=== PATIENT | female | born 1960 | race Two or more races ===

== ENCOUNTER → 2024-09-28 | Outpatient (CLI) | payer MEDICAID, SELFPAY ==
--- NOTE | 2024-09-28 09:45 | XR_ITS ---
Examination: Screening digital mammography, bilateral Computer aided detection 3-D breast Tomosynthesis, bilateral Date and time of exam: September 28, 2024 0930 hours Compared to mammograms dating to November 27, 2020 Indication: Screening Technique: Nonmagnified MLO, CC views of the breasts to been obtained, reconstructed from 3-D Tomosynthesis images. R2 computer aided detection program utilized for evaluation of suspicious masses and/or abnormal calcifications. 3-D Tomosynthesis images obtained. Findings: Stable focal asymmetry central left breast CC view The breasts are heterogeneously dense which may obscure small masses The breast architecture is nodular although definite suspicious mass is not depicted Impression: BI-RADS category II: Benign Findings. Recommend 1 year follow-up mammogram. Given the heterogeneously dense nodular breast architecture, recommend baseline bilateral breast sonography follow-up
== END | disposition home or self-care (01) ==
LOC: CDIM 09:20
PROVIDERS: Referring Provider Nurse Practitioner Primary Care; Visit Provider Nurse Practitioner Primary Care
DX: Z12.31 Encounter for screening mammogram for malignant neoplasm of breast (principal); R92.323 Mammographic fibroglandular density, bilateral breasts; N63.20 Unspecified lump in the left breast, unspecified quadrant; N63.10 Unspecified lump in the right breast, unspecified quadrant
CPT/HCPCS: 77063; 77067

== ENCOUNTER 2025-04-30 09:50 | Emergency (ER) | payer MEDICAID, SELFPAY ==
[2025-04-30 10:24] VITALS: BP 129/75; PULSE 64; RESP 16; TEMP 36.7; O2SAT 97; BMI 33.6
--- NOTE | 2025-04-30 10:48 | EDNOTE_ITS ---
Upper Extremity Injury RME/HPI General Chief Complaint: Extremity Injury, Upper Stated Complaint: L) ARM PAIN RADIATING TO L) EAR, POOR HEARING X 3D Time Seen by Provider: 04/30/25 09:56 Arrival date/time: 04/30/25 09:50 This is a 65-year-old female that has multiple complaints. Patient states that she is having left ear fullness and ringing and states that she has not been able to hear really well in her left ear. Patient reports that she has been trying to clean her ear but it has not been working. Patient also complains of left lateral chest pain to posterior muscles and left shoulder pain. Pain is exacerbated with movement but also reports chest pain on left upper chest. Patient denies any shortness of breath. Patient has a history of high blood pressure, diabetes. Patient reports that she uses insulin. Related Data Home Medications ?Medication ?Instructions ?Recorded ?Confirmed benazepril 20 mg tablet (Lotensin) 20 mg PO QDAY #0 ta bs 02/13/14 metformin 1,000 mg tablet 1,000 mg PO QDAC #0 tabs 10/22 (Glucophage) Previous Rx's ?Medication ?Instructions ?Recorded cyclobenzaprine 5 mg tablet 5 mg PO HS PRN muscle spas m #10 04/30/25 tabs ibuprofen 800 mg tablet 800 mg PO Q6H PRN pain #10 t abs 04/30/25 Allergies Allergy/AdvReac Type Severity Reaction Status Date / Time No Known Allergies Allergy Verified 04/30/25 09:54 Review of Systems Review of Systems Systems Reviewed: All systems reviewed, normal except as documented Past Medical History Past Medical History Comments PMH COMMENT: See note ED Exam Narrative Physical exam: VITAL SIGNS: Reviewed. GENERAL APPEARANCE: Alert and interactive, follows commands, no acute distress HEAD AND FACE: Non-traumatic. ENT: PERRL, conjuctiva pink and clear, eyelid no trauma, Mucous membrane moist. NECK: Supple, nontender, no nuchal rigidity. CHEST: No tenderness, no crepitus, no paradoxical movement, no retractions. LUNGS: breathing even and unlabored HEART: Regular rate, cap refill less than 2 seconds ABDOMEN: Soft, nondistended, no guarding, nontender, no rebound, no masses, NEUROLOGICAL: Gross motor function intact sensory function intact, Appropriate for age. MUSCULOSKELETAL: low back nontender, full range of motion. no midline tenderness, no meningismus, no step offs EXTREMITIES: No redness no swelling no skin breakdown on bilateral foot and leg. Distal neurovascular status intact bilateral foot SKIN: Color pink, dry, no rash, no lacerations, no abrasions, no contusions. Course Quality Measures none Orders Category Date Time Status ED Ear Irrigation X1 Care 04/30/25 10:48 Completed EKG (ED ONLY) *Do not use* NOW Care 04/30/25 12:34 Completed EKG (ED Only) Stat Exams 04/30/25 12:33 Ordered XR chest 1V Stat Exams 04/30/25 10:48 Completed BNP [B-Type Natriuretic Peptide] Stat Lab 04/30/25 11:28 Completed CBC Stat Lab 04/30/25 11:28 Completed Comprehensive Metabolic Panel Stat Lab 04/30/25 11:28 Completed Troponin I Stat Lab 04/30/25 11:28 Completed Acetaminophen Tab [Tylenol ES Tab] Med 04/30/25 10:48 Discontinued 1,000 mg PO X1 ONE CYCLObenzaPRINE [Flexeril] Med 04/30/25 10:48 Discontinued 5 mg PO X1 ONE Ibuprofen Tab [Motrin Tab] Med 04/30/25 10:48 Discontinued 800 mg PO X1 ONE Vital Signs Vital signs: Vital Signs Temperature 98.0 F 04/30/25 10:24 Pulse Rate 64 04/30/25 10:24 Respiratory Rate 16 04/30/25 10:24 Blood Pressure 129/75 04/30/25 10:24 Pulse Oximetry (%) 97 04/30/25 10:24 Oxygen Delivery Method Room Air 04/30/25 10:24 Extremity Injury MDM Narrative MDM Narrative:: chest x ray: FINDINGS: Mild scarring in the upper lung zones Normal heart size No interval pneumonia or pulmonary edema IMPRESSION: No interval pneumonia or pulmonary edema Spoke to patient at length. Patient is feeling better with medications that patient wanted her ear to be irrigated because of cerumen impaction. However while she was in the waiting room she stated she did not want to wait any longer. Patient reports that she is feeling better and she wants to go home and eat. Patient states she has not eaten I offered patient food here in the emergency room patient states that she does not want to wait here any longer. Patient states that she will have her ear irrigated by her primary doctor. I told patient about labs. Patient had a slightly elevated creatinine and BUN. I do not have anything to compare her to. I told patient that I would rather her take Tylenol versus ibuprofen because her kidney function was a little elevated. I do not know what patient's baseline is. I did also send patient home with a muscle relaxant. I told her to only take only if she is not going to be driving. I told her she can take it once a day. Patient verbalized understanding. I did explain to her at length that she needs to follow-up with her labs with her primary doctor. I insisted that she wait until she gets her ear irrigated but she did not want a wait and she wanted to be discharged. Patient states she is feeling better and was hungry. Dragon dictation: Although this document has been carefully reviewed, there may still be some phonetic and other typographical errors. These errors are purely grammatical due to imperfections in the software program and should not be construed in any way to compromise the substance of the patient's medical care during this visit. I also explained to patient that she had not had an EKG done. EKG was not done. I told patient to come back to the emergency room symptoms change or worsen. Patient data External records reviewed:: [facility] previous records Clinical information provided by:: patient Social determinants that could affect healthcare access:: none Patient has the following chronic illnesses:: none How is presenting disease/condition affected by chronic disease/condition?: no chronic disease Evaluation data The following diagnostics were reviewed and interpreted by me:: lab results and radiology exam(s) Lab and/or radiology exams considered but not ordered:: none Interpretation Summary: see note Medications / Prescriptions Medications or Prescriptions considered but not ordered:: none Medication administrations:: Medication Administration History Discontinued Medications Acetaminophen (Acetaminophen 500 Mg Tablet) 1,000 mg PO X1 ONE Stop: 04/30/25 10:49 Last Admin: 04/30/25 10:56 Dose: 1,000 mg Documented By: POWER Cyclobenzaprine HCl (Cyclobenzaprine 5 Mg Tablet) 5 mg PO X1 ONE Stop: 04/30/25 10:49 Last Admin: 04/30/25 10:56 Dose: 5 mg Documented By: POWER Ibuprofen (Ibuprofen Tab 400 Mg Tablet) 800 mg PO X1 ONE Stop: 04/30/25 10:49 Last Admin: 04/30/25 10:56 Dose: 800 mg Documented By: POWER see mar Consultations Consultation(s) initiated? (list below): No Diagnosis Upper Extremity Injury Differential Diagnosis: other (cerumen impaction, muscle tension, arm pain ) Most likely diagnosis given after review of the tests above:: see note Admission Indicated Admission indicated?: not indicated Admission Request Was there a request for admission?: No Disposition Plan Disposition Plan: Discharge Discharge Attestation Discharge Attestation: The patient and all family members were given an opportunity to ask questions and understood the discharge instructions. Discharge instructions specifically effects, indications for sooner follow up or return to the emergency department, and the expected course of current diagnosis. Patient condition: Stable Discharge Plan Plan Patient Disposition: HOME (Self Care) Patient condition on transfer: Stable Prescriptions/Referrals Prescriptions/Med Rec: New ibuprofen 800 mg tablet 800 mg PO Q6H PRN (Reason: pain) Qty: 10 0RF cyclobenzaprine 5 mg tablet 5 mg PO HS PRN (Reason: muscle spasm) Qty: 10 0RF No Action metformin [Glucophage] 1,000 MG tablet 1,000 mg PO QDAC Qty: 0 benazepril [Lotensin] 20 MG tablet 20 mg PO QDAY Qty: 0 Referrals: Richard ([facility])Hayde PA-C [Primary Care Provider] - In 1 week Problem List Clinical Impression: Arm pain, Cerumen impaction, Muscle tension pain, Creatinine elevation Patient/Caregiver Discharge Instructions Discharge Activity: activity as tolerated Education Materials: RICE Additional Instructions: Maggie un don con johnson medico de cabecera en las proximas 24-48 horas. Regrese a la harriet de emergencias si hay evidencia de que los signos o sintomas empeoran. Print Language: [place] Stand Alone Forms: Cari Award Info., Patient Portal Info Letter PA/[facility] Supervising Physician MAYUR Supervising Physician: sadia
--- NOTE | 2025-04-30 10:48 | XR_ITS ---
EXAMINATION: PA chest single view TECHNIQUE: Upright PA chest single view Date and time: April 30, 2025, 1052 hours INDICATIONS: Chest pain today FINDINGS: Mild scarring in the upper lung zones Normal heart size No interval pneumonia or pulmonary edema IMPRESSION: No interval pneumonia or pulmonary edema
[2025-04-30] MEDS: ACETAMINOPHEN 500 MG TABLET 1000 MG PO (10:56)
[2025-04-30] MEDS: IBUPROFEN TAB 400 MG TABLET 800 MG PO (10:56)
[2025-04-30 11:50] LABS: Basophils # (Auto) 0.0 Thou/mm3 (0.0-0.2); Basophils % (Auto) 1 % (0-2.5); Eosinophils # (Auto) 0.2 Thou/mm3 (0.0-0.5); Eosinophils % (Auto) 3 % (0-10); Hematocrit 39.4 % (36.0-46.0); Hemoglobin 12.8 g/dL (12.0-16.0); Immature Granulocytes Auto 0.01 Thou/mm3 (0.00-0.00); Lymphocytes # (Auto) 1.9 Thou/mm3 (1.0-4.8); Lymphocytes % (Auto) 29 % (10-50); Mean Corpuscular HGB Conc 32.5 g/dl (31.0-37.0); Mean Corpuscular Hemoglobin 26.9 pg (25.0-35.0); Mean Corpuscular Volume 83 fL (80-100); Monocytes # (Auto) 0.7 Thou/mm3 (0.0-0.8); Monocytes % (Auto) 11 % (0-12); Neutrophils # (Auto) 3.6 Thou/mm3 (1.8-7.7); Neutrophils % (Auto) 56 % (37-80); Nucleated Red Blood Cell # 0.00 Thou/mm3 (0.00-0.00); Nucleated Red Blood Cell % 0 /100 WBC (0); Platelet Count 262 Thou/mm3 (140-440); RDW Standard Deviation 39.1 fL (36.4-46.3); Red Blood Count 4.76 Miln/mm3 (4.00-5.20); White Blood Count 6.4 Thou/mm3 (3.6-11.0)
[2025-04-30 12:06] LABS: B-Type Natriuretic Peptide 63 pg/mL (0-100)
[2025-04-30 12:07] LABS: Alanine Aminotransferase 14 U/L (10-49); Albumin, Serum 3.9 gm/dL (3.4-4.8); Albumin/Globulin Ratio 1.3 (1.2-2.2); Alkaline Phosphatase 96 U/L (46-116); Anion Gap 9 (7-16); Aspartate Amino Transferase 24 U/L (0-34); BUN/Creatinine Ratio 23 Ratio (12-20); Bilirubin,Total 0.3 mg/dL (0.3-1.2); Blood Urea Nitrogen 36 mg/dL (9-23); Calcium 9.7 mg/dL (8.3-10.6); Calcium (Corrected) 9.8 mg/dL (8.5-10.1); Carbon Dioxide 27.5 mMol/L (20.0-31.0); Chloride 106 mMol/L (98-107); Creatinine (Component) 1.6 mg/dL (0.6-1.3); Estimated Creatinine Clearance 37.4 mL/min (>60); Globulin 3.1 gm/dL (2.3-3.5); Glucose 187 mg/dL (74-106); Osmolality,Calculated 296 (275-295); Potassium 4.8 mMol/L (3.4-5.1); Sodium 142 mMol/L (136-145); Total Protein 7.0 gm/dL (5.7-8.2); Troponin I < 0.020 ng/mL (0.0-0.045); eGFR 36 See Note
== END 2025-04-30 14:46 | disposition home or self-care (01) ==
PROVIDERS: Nurse Practitioner Family; Emergency Provider Emergency Medicine; PCP Physician Assistant
DX: H61.22 Impacted cerumen, left ear (principal); M79.602 Pain in left arm; R79.89 Other specified abnormal findings of blood chemistry; M79.18 Myalgia, other site; R07.9 Chest pain, unspecified
CPT/HCPCS: 36415; 71045; 80053; 83880; 84484; 85025; 99283; A9270